=== PATIENT | female | born 1995 | race Caucasian/White ===

== ENCOUNTER 2019-06-24 00:04 | Inpatient (IN) | payer OTHER, MEDICAID ==
[~2019-06-24 00:04] MED LIST: Acetaminophen 325 MG Tab PO PRN; Carboprost Tromethamine 250 MCG/1 ML Amp IM PRN; Lactated Ringers 1,000 ML IV ONE; Lidocaine 1% 30 ML SDV INJECT PRN; Methylergonovine 0.2 MG/1 ML Amp IM PRN; Misoprostol 25 MCG (1/4 of 100 MCG) Tab VAG PRN; Misoprostol 400 MCG (4 X 100 MCG TAB) RECTAL PRN; Ondansetron 4 MG/2 ML SDV IVPUSH PRN; Oxytocin/Normal Saline 30 UNIT/500 ML BAG IV SCH; Sodium Chloride 0.9% 10 ML Syringe FLUSH PRN; Tranexamic Acid 1,000 MG in Sodium Chloride 0.9% 100 ML IV PRN
[2019-06-24] MEDS: Lactated Ringers 1,000 ML IV SCH ×4 (01:10→12:30)
[2019-06-24] MEDS ORDERED: ceFAZolin 2 GM in Premix Bag 1 BAG IV ONE (01:26)
[2019-06-24] MEDS ORDERED: Citric Acid/Sodium Citrate Solution 30 ML Cup PO ONE (01:26)
[2019-06-24] MEDS ORDERED: Ketorolac 30 MG/ML SDV IVPUSH SCH (01:30)
[2019-06-24] MEDS ORDERED: Acetaminophen/oxyCODONE 325-5 MG Tab PO PRN (01:30)
[2019-06-24] MEDS ORDERED: ePHEDrine 50 MG/ML SDV IVPUSH PRN (01:30)
[2019-06-24] MEDS ORDERED: Naloxone 2 MG/2 ML Syringe IVPUSH PRN (01:30)
[2019-06-24] MEDS ORDERED: diphenhydrAMINE 50 MG/ML SDV IVPUSH PRN (01:30)
--- NOTE | 2019-06-24 02:18 | OBOUT ---
DATE: 06/24/2019 TIME OF NST: 44 to 010. REASON FOR NST: 1. Intrauterine at 40 weeks by 7-3/7 weeks' ultrasound. 2. Gestational hypertension suspected. 3. Gestational thrombocytopenia, platelets of 130,000. 4. . NST INTERPRETATION: During this time period, heart tone baseline is approximately 120, at least two 15 x 15 beats per minute accelerations, making this strip reactive as well as also noted to be reassuring. Tocometer reveals potential 4 to 5 contractions which the patient did start feeling at the end of this NST. ASSESSMENT: 1. Nonstress test, reactive and reassuring. 2. Tocometer with contractions. PLAN: Shortly after this NST was performed at approximately 1:10 a.m., the patient's monitoring was being done and heart rate dropped down to less than 50 at its lowest, and this lasted for approximately 14 minutes before it came up to above 110 beats per minute. Noticed during this time period, the patient did describe some feeling more of her contractions and had a blood pressure that was elevated thereafter at 154/96 with a heart rate of 97. I was called in stat during this time period, and arrived, reviewed the strip quickly and discussed with the patient concerns with status and recommendation to proceed with primary low-transverse . Did discuss with her and her male partner risks, benefits, alternatives, and complications of including, but not limited to, infection; bleeding; damage to internal organs such as bowel, bladder, tubes, uterus, ovaries, sometimes fetus; rarely needing a blood transfusion or further surgery; and even rare maternal or . She understands, agrees, and wishes to proceed. Verbal and written consents were obtained and questions were answered. We will proceed to the OR as soon as crew is ready and available. At the current time of dictation, heart tones are in the 120s to 140s with some accelerations seen. Tocometer difficult to read because the patient is moving around, but possibility of contractions every 3 minutes at their closest. We will proceed as above. The patient understands and agrees with the above treatment plan. Type and screen will be made as well, and Ancef will be given. with the deceleration oxygen was given, ivf bolus given and positional changes were done. MOD /[id number] LEORA
--- NOTE | 2019-06-24 08:34 | OR ---
DATE: 06/24/2019 PREOPERATIVE DIAGNOSES: 1. Intrauterine at 40 weeks by 7-week ultrasound. 2. Nonreassuring status. 3. Gestational hypertension, labile and nearing severe quickly after admission. 4. Gestational thrombocytopenia, platelets of 130,000 with workup for HELLP and preeclampsia being done. 5. 1, para 0. POSTOPERATIVE DIAGNOSES: 1. Intrauterine at 40 weeks by 7-week ultrasound. 2. Tight nuchal cord x1. 3. Small old blood clot with placental membrane delivery, suspect early placental abruption. 4. Nonreassuring status. 5. Gestational hypertension, labile and nearing severe quickly after admission. 6. Gestational thrombocytopenia, platelets of 130,000 with workup for HELLP and preeclampsia being done. 7. 1, para 0. PROCEDURES PERFORMED: Nonstress test followed by primary low transverse section with 2-layer uterine closure. [employer] LO[employer]: Katarina Guthrie MD. ANESTHESIA: Spinal. EBL: 600 mL. IV FLUIDS: Lactated Ringer's, 500 mL. Pitocin 300 mL. URINE OUTPUT: 700 mL and clear yellow. START TIME: 2:16. UTERINE INCISION: 2:18. DELIVERY: 2:19. STOP: 2:39. FINDINGS: Female scores 8 and 9, tight nuchal cord x1, and small old blood clot noted with placental membrane delivery, suspect abruption. DESCRIPTION OF PROCEDURE: After proper consent was obtained, the patient was brought to the operating room with continuous monitoring during that time. When she presented to the OR, she had heart tones in the 140s with acceleration in the 170s and prior to delivery was between 120s and 130s. She had a Pardo placed prior to coming to the OR. Spinal anesthetic was administered, and the patient was placed in supine position with left lateral tilt. The abdomen was prepped and draped in the normal sterile fashion using Betadine to proceed quicker. A skin incision was then made on the lower abdomen in a transverse Pfannenstiel- type fashion, was carried down the fascia and scored in the midline. Subcutaneous tissue was raked laterally with Ahn retractor, and fascial incision was extended in a transverse fashion using curved Gonzales's. Pranay clamps x2 used to grasp the superior aspect of fashion and the rectus muscles dissected from the fascia using sharp and blunt technique. In a similar fashion, Pranay clamps x2 used to grasp the inferior portion of the incision, and the rectus and pyramidalis muscles were dissected off the fascia using sharp and blunt technique. Rectus muscles were in the midline with blunt technique. Abdominal cavity was entered with blunt technique and incision was extended superiorly and inferiorly with blunt technique. Frandy O large retractor was then introduced and used. Vesicouterine peritoneum was identified and incised in transverse fashion with Metzenbaum scissors. Bladder flap was made digitally. A curvilinear incision was made along the lower uterine segment at 0218 hours. Uterus was entered sharply. Clear fluid returned. Uterine incision was then extended in transverse fashion using blunt technique. vertex was then delivered through the abdomen with a tight nuchal cord x1, reduced bluntly with delivery. Rest of the infant was then delivered without difficulty. Mouth and nares were suctioned. Cord was doubly clamped and cut, and was brought over to the team. Then, approximately 10 mL cord blood was obtained for labs. Placenta then delivered with gentle cord traction and fundal massage, and there was noted with placental membranes some old blood clot, suspected early abruption. Uterine cavity was then cleared of all blood clots and debris with lap sponge. Loyola clamp was used to grasp the incision. This was closed in a running locked fashion and tied at the lateral margins with 1-0 Vicryl. A second imbricating layer was then applied with and tied at the lateral margins with 1-0 Vicryl. Left lateral portion of the incision revealed mild bleeding. Figure-of- eight stitch was applied. Hemostasis was reassured. First inspection of the uterine incision revealed hemostasis. Frandy O retractor was removed and paracolic gutters were then cleared of all blood clots and debris. Anterior cul-de-sac was irrigated copiously and all blood clots and debris were removed. Second and final inspection of the uterine incision and anterior cul-de-sac revealed hemostasis. Rectus muscles were then reapproximated in the midline with qpbinn-ry-omold stitch using 1-0 Vicryl. Subfascial tissue was found to be hemostatic. Fascia was closed in a running fashion and tied at the lateral margin with 0 looped PDS. Subcutaneous tissue was irrigated copiously. Hemostasis was reassured. Skin was reapproximated with david. Sterile Aquacel dressing was applied. The uterine fundus was firm and massaged at the conclusion of this case -2 below umbilicus. No immediate complications noted. Sponge, lap, and needle counts were correct. The patient received 2 g of Ancef preoperatively, Pitocin per protocol, and will receive Toradol at the conclusion of the case for pain control. Mother and are currently stable at the time of dictation. MODL /[id number] LEORA
[2019-06-24] MEDS: Docusate Sodium 100 MG Cap PO PRN ×2 (08:35→21:00)
[2019-06-24] MEDS: Prenatal Multivitamin with Calcium/Folic Acid/Iron Tab PO SCH (08:35)
[2019-06-24] MEDS: Simethicone 80 MG Tab.Chew PO SCH ×4 (08:36→21:00)
[2019-06-24] MEDS: Ketorolac 30 MG/ML SDV IVPUSH SCH ×3 (08:37→21:00)
[2019-06-24] MEDS ORDERED: Oxytocin/Normal Saline 30 UNIT/500 ML BAG IV ONE (10:10)
[2019-06-24 10:42] LABS: ANION GAP 17.2 mEq/L (7-13)
[2019-06-24] MEDS ORDERED: Ibuprofen 800 MG Tab PO PRN (21:30)
[2019-06-24] MEDS: Methylergonovine 0.2 MG Tab PO SCH (21:43)
[2019-06-25] MEDS: Acetaminophen/oxyCODONE 325-5 MG Tab PO PRN ×4 (03:38→21:37)
[2019-06-25] MEDS: Methylergonovine 0.2 MG Tab PO SCH ×3 (05:29→21:37)
[2019-06-25] MEDS: Ibuprofen 800 MG Tab PO PRN ×2 (05:30→15:50)
[2019-06-25 06:49] LABS: ANION GAP 14.7 mEq/L (7-13); CHLORIDE,CL 105 mmol/L (98-107); SODIUM,NA 140 mmol/L (136-145)
[2019-06-25] MEDS: Prenatal Multivitamin with Calcium/Folic Acid/Iron Tab PO SCH (08:19)
[2019-06-25] MEDS: Simethicone 80 MG Tab.Chew PO SCH ×4 (08:19→21:36)
[2019-06-25] MEDS: Docusate Sodium 100 MG Cap PO PRN ×2 (08:20→21:36)
--- NOTE | 2019-06-25 08:32 | PN ---
DATE: 06/25/2019 SUBJECTIVE: The patient is tolerating p.o., ambulating minimally. Pardo is still in place. Had an episode of increased bleeding after approximately 6 to 12 hours of no vaginal bleeding. I was called in regard to this. CBC was drawn as well as Methergine started 0.2 mg p.o. q.8 hours. The patient denies any chest pain, shortness of breath, lightheadedness. She denies any headaches, visual changes, or upper abdominal pain. OBJECTIVE: Vital Signs: Temperature 97.8, heart rate 76, blood pressure 117/67, respiratory rate 16. Lungs: Clear to auscultation bilaterally. Heart: S1 and S2. Regular rate and rhythm. Abdomen: Firm uterus. -1 below umbilicus. Aquacel dressing appears dry and intact. Minimal shadowing lateral border, appears to be stable. Extremities: PRINCESS hose are on. No calf pain. LABORATORY DATA: Yesterday, white cell count was 17.8, hemoglobin 8.6, platelets 121. On recheck this morning, 14.6 for a white cell count, hemoglobin stable at 8.5, and platelets at 116,000. BMP remarkable for her creatinine improving from 1.25 predelivery to 0.92 currently. ASSESSMENT AND PLAN: 1. Postop day #1, status post primary low transverse , two-layer uterine closure with suspected abruption and nonreassuring status. 2. Gestational hypertension - resolved. 3. Gestational thrombocytopenia, appears to be ongoing. She is stable otherwise. We will continue to follow closely in regard to this. 4. Anemia of acute blood loss with hemoglobin dropping from 11.5 down to 8.5. The patient is currently asymptomatic. We will follow closely. Start iron today. Recheck CBC tomorrow. 5. Increased creatinine. This has resolved. Suspect possibly related to hydration status versus possible early preeclampsia. We will continue to follow clinically and closely at this point in time. [facility] /[id number]
[2019-06-25] MEDS ORDERED: Sodium Bicarbonate 4.2% 2.5 MEQ/5 ML SDV IV ONE (09:12)
[2019-06-25] MEDS ORDERED: ePHEDrine 50 MG/ML SDV IV ONE (09:12)
[2019-06-25] MEDS ORDERED: Ketorolac 30 MG/ML SDV IVPUSH ONE (09:12)
[2019-06-25] MEDS ORDERED: Dexamethasone 4 MG/ML SDV IV ONE (09:12)
[2019-06-25] MEDS ORDERED: Morphine PF 1 MG/ML Amp ITHECAL ONE (09:12)
[2019-06-25] MEDS ORDERED: Ondansetron 4 MG/2 ML SDV IV ONE (09:12)
[2019-06-25] MEDS: Ferrous Sulfate 325 MG Tab PO SCH (21:36)
[2019-06-26] MEDS: Ibuprofen 800 MG Tab PO PRN ×3 (00:55→18:04)
[2019-06-26] MEDS: Acetaminophen/oxyCODONE 325-5 MG Tab PO PRN ×4 (02:57→22:32)
[2019-06-26] MEDS: Methylergonovine 0.2 MG Tab PO SCH (06:24)
--- NOTE | 2019-06-26 08:23 | PN ---
DATE: 06/26/2019 Postop day #2. SUBJECTIVE: The patient is tolerating p.o., is ambulating, urinating, passing flatus. Yesterday, she had 1 episode of lightheadedness. CBC was done and did reveal a hemoglobin that was stable at 9.1 with platelet count up to 131,000. Thereafter, the patient denies any other concerns. She denies any chest pain, shortness of breath, or lightheadedness this morning. OBJECTIVE: General: I's and O's have been followed and are adequate. Vital Signs: Temperature 98.8, heart rate 89, blood pressure 122/77, respiratory rate 18. Lungs: Clear to auscultation. Heart: S1, S2. Regular rate and rhythm. Firm uterus -1 below umbilicus. Aquacel dressing appears dry, intact. Minimal tracing in lateral edges. Not increasing in size. Extremities: Trace pedal edema. No calf pain. LABORATORY DATA: This morning, white cell count 10, hemoglobin 8.7, platelets 143,000. ASSESSMENT: 1. Postop day #2 status post primary low transverse section with 2- layer uterine closure. 2. Gestational hypertension, resolved. 3. Gestational thrombocytopenia, resolving. 4. Anemia, acute blood loss. Hemoglobin dropped from 11.5 to the lowest at 8.5. Hemoglobin stable. The patient is currently asymptomatic. We will follow closely. 5. Increased creatinine upon admission. At this point in time, yesterday's labs were reassuring with creatinine back in the normal range of 0.92. Urine output has been adequate. PLAN: Possible discharge tomorrow. Continue to follow clinically and closely. [facility] /[id number]
[2019-06-26] MEDS: Docusate Sodium 100 MG Cap PO PRN ×2 (08:51→21:16)
[2019-06-26] MEDS: Ferrous Sulfate 325 MG Tab PO SCH (08:51)
[2019-06-26] MEDS: Prenatal Multivitamin with Calcium/Folic Acid/Iron Tab PO SCH (08:54)
[2019-06-26] MEDS: Simethicone 80 MG Tab.Chew PO SCH ×4 (08:54→21:16)
[2019-06-27] MEDS: Acetaminophen/oxyCODONE 325-5 MG Tab PO PRN ×3 (03:50→14:14)
[2019-06-27] MEDS: Ibuprofen 800 MG Tab PO PRN (03:51)
--- NOTE | 2019-06-27 06:02 | DISCH ---
ADMIT DIAGNOSES: 1. Intrauterine at 40 weeks by 7-3/7 week ultrasound. 2. Nonreassuring status. 3. Gestational hypertension. 4. Gestational thrombocytopenia. 5. G1, P0. DISCHARGE DIAGNOSES: 1. Intrauterine at 40 weeks by 7-3/7 week ultrasound. 2. Tight nuchal cord x1. 3. Small old blood clot with delivery of placental membranes - abruption suspected. 4. Anemia of acute blood loss. Hemoglobin dropping down to 8.5 on postop day #1. 5. Increased creatinine - resolving. 6. Nonreassuring status. 7. Gestational hypertension - resolving. 8. Gestational thrombocytopenia - resolving. 9. G1, P0. PROCEDURES PERFORMED: NST followed by primary low transverse with 2- layer uterine closure. HISTORY OF PRESENT ILLNESS: Please see H and P. SUMMARY OF HOSPITAL COURSE: The patient was admitted on the above date with above diagnoses, was going to undergo induction of labor, but with monitoring prior to using any medications, nonreassuring status was noted with approximately a 14-minute deceleration. She was subsequently taken to the OR, shortly thereafter had a primary low transverse with 2 layer uterine closure under spinal anesthesia, yielding a female with scores 8 and 9 with a weight of 8 pounds 10 ounces, 3900 g. With this delivery, small blood clot was noted with placental membrane delivery, suspect abruption. Postop day #1, hemoglobin dropped down to 8.5. She was followed for symptoms and had serial labs. Did not require a blood transfusion and hemoglobin was stable at 9.1 on 06/24 and 8.7 on /. Her platelets started at 121 upon admission, dropped down to 116 on postop day #1. On postop day #2, they were up to 143,000. Postop day 1 and 2, please see progress notes for further details. Postoperative day #3, date of discharge, the patient was tolerating p.o., was ambulating, urinating, passing flatus, requesting discharge. SUBJECTIVE: Vital Signs: Last set of vitals; temperature 98.7, heart rate 93, blood pressure 129/80, respiratory rate 16. Lungs: Clear to auscultation bilaterally. Heart: S1, S2. Regular rate and rhythm. Abdomen: Firm. Uterus -1 to -2 below umbilicus. Aquacel dressing. Did have some shadowing that was increasing over the last 12 to 24 hours. Aquacel dressing was removed. No evidence of active bleeding or drainage was noted and re-application of a new Aquacel will be done prior to discharge. Extremities: Trace pedal edema. No calf pain. LABORATORY DATA: The patient's creatinine was also noted to be elevated at 1.25 on date of admission, dropped down to 1.19 after delivery, and on postop day #1 it was down to 0.92. Urine output was followed and adequate during this time period. CONDITION ON DISCHARGE COMPARED TO CONDITION ON ADMISSION: Improved. DISCHARGE INSTRUCTIONS: 1. Diet: As tolerated. 2. Activity: No lifting more than 20 pounds. No sit-ups or straining. Pelvic rest for the next 6 weeks with immediate return to fertility discussed with the patient. 3. Reason to return or go to the emergency room were discussed with the patient in detail including, but not limited to, temperature greater than 100.4, foul-smelling discharge, red or tender breasts, or increased vaginal bleeding or increasing pain, drainage, or redness around the incision. DISCHARGE MEDS: 1. [id number] Tylenol or ibuprofen for pain. 2. Percocet 5/325 one to two q.6 hours p.r.n., #30, no refills. Discussed these medication, adverse and unwanted effects, as well as precautions with driving. 3. Colace 100 mg b.i.d. p.r.n., #60, no refills. 4. Iron sulfate 325 mg b.i.d. x6 weeks, dispensed q.s., no refills. Followup on 07/01/2019 for removal of david with her baby. I did discuss with the patient interim reasons to go to the emergency room in regard to her baby as well as importance of followup and ramifications of not doing so. She understands and agrees with the above treatment plan. [facility] /[id number]
[2019-06-27] MEDS: Ferrous Sulfate 325 MG Tab PO SCH (09:17)
[2019-06-27] MEDS: Prenatal Multivitamin with Calcium/Folic Acid/Iron Tab PO SCH (09:17)
[2019-06-27] MEDS: Docusate Sodium 100 MG Cap PO PRN (09:17)
[2019-06-27] MEDS: Simethicone 80 MG Tab.Chew PO SCH ×2 (09:18→14:14)
== END 2019-06-27 15:02 | disposition home or self-care (01) | DRG 787 ==
LOC: DL.OBCHECK 00:04 → DL.OB 00:05 → OBSVTOIN 02:19 → DL.OB 02:19
PROVIDERS: ADMIT Family Medicine; ATTEND Family Medicine
PROC: 10D00Z1 Extraction of Products of Conception, Low, Open Approach (ICD-10-PCS; principal; 2019-06-24)
PROC: 4A0HXFZ Measurement of Products of Conception, Cardiac Rhythm, External Approach (ICD-10-PCS; 2019-06-24)
DX: O48.0 Post-term pregnancy (principal); D62 Acute posthemorrhagic anemia; O99.12 Other diseases of the blood and blood-forming organs and certain disorders involving the immune mechanism complicating childbirth; Z37.0 Single live birth; O13.4 Gestational [pregnancy-induced] hypertension without significant proteinuria, complicating childbirth; Z3A.40 40 weeks gestation of pregnancy; O69.81X0 Labor and delivery complicated by cord around neck, without compression, not applicable or unspecified; D69.6 Thrombocytopenia, unspecified; O90.81 Anemia of the puerperium
CPT/HCPCS: 36415; 51702; 80048; 81003; 82565; 82570; 83615; 84156; 84450; 84460; 84520; 84550; 85027; 86850; 86900; 86901; A9270-GY; J0690; J1100; J1200; J1885; J2274; J2405; J2590; J7120

== ENCOUNTER 2021-12-09 08:00 | Emergency (ER) | payer MEDICAID, OTHER | END 2021-12-09 08:20 | disposition home or self-care (01) | LOC: DL.ED 08:00 | DX: K04.7 Periapical abscess without sinus (principal) | CPT/HCPCS: 99282 ==

== ENCOUNTER 2021-12-10 08:00 | Emergency (ER) | payer MEDICAID, OTHER | END 2021-12-10 15:53 | disposition home or self-care (01) | LOC: DL.ED 08:00 | DX: K08.89 Other specified disorders of teeth and supporting structures (principal) | CPT/HCPCS: 99282 ==

== ENCOUNTER 2021-12-14 01:45 | Emergency (ER) | payer BC, MEDICAID, OTHER ==
[2021-12-14] MEDS ORDERED: traMADol 50 MG Tab PO ONE (02:55)
[2021-12-14] MEDS ORDERED: Amoxicillin/Clavulanate K 875-125 MG Tab PO ONE (02:55)
== END 2021-12-14 03:00 | disposition home or self-care (01) ==
LOC: DL.ED 01:45
DX: K02.9 Dental caries, unspecified (principal); L08.9 Local infection of the skin and subcutaneous tissue, unspecified
CPT/HCPCS: 99282; A9270-GY

== ENCOUNTER 2022-07-22 18:26 | Emergency (ER) | payer MEDICAID ==
[2022-07-22] MEDS ORDERED: Ketorolac 30 MG/ML SDV IM ONE (19:48)
== END 2022-07-22 20:45 | disposition home or self-care (01) ==
LOC: DL.ED 18:26
DX: M67.432 Ganglion, left wrist (principal); Z86.16 Personal history of COVID-19
CPT/HCPCS: 96372; 99283; J1885

== ENCOUNTER 2023-07-13 09:55 | Inpatient (IN) | payer MEDICAID ==
[2023-07-13] MEDS ORDERED: Carboprost Tromethamine 250 MCG/1 ML Amp IM PRN ×2 (10:00→15:08)
[2023-07-13] MEDS ORDERED: Ibuprofen 800 MG Tab PO PRN (10:00)
[2023-07-13] MEDS ORDERED: Tranexamic Acid 1,000 MG in Sodium Chloride 0.9% 100 ML IV PRN ×2 (10:00→15:09)
[2023-07-13] MEDS ORDERED: Methylergonovine 0.2 MG/1 ML Amp IM PRN ×2 (10:00→15:08)
[2023-07-13] MEDS ORDERED: Naloxone 2 MG/2 ML Syringe IVPUSH PRN ×2 (10:00→15:09)
[2023-07-13] MEDS ORDERED: Misoprostol 400 MCG (4 X 100 MCG TAB) RECTAL PRN ×2 (10:00→15:08)
[2023-07-13] MEDS ORDERED: Acetaminophen/oxyCODONE 325-5 MG Tab PO PRN ×3 (10:00→15:07)
[2023-07-13] MEDS ORDERED: Ondansetron 4 MG/2 ML SDV IVPUSH PRN ×2 (10:00→15:07)
[2023-07-13] MEDS ORDERED: Docusate Sodium 100 MG Cap PO PRN (10:00)
[2023-07-13] MEDS ORDERED: ePHEDrine 50 MG/ML SDV IVPUSH PRN ×2 (10:00→15:09)
[2023-07-13] MEDS ORDERED: Acetaminophen 325 MG Tab PO PRN (10:00)
[2023-07-13] MEDS: Lactated Ringers 1,000 ML IV SCH ×2 (10:20→18:34)
[2023-07-13 10:29] LABS: HEMATOCRIT 36.2 % (37.0-47.0); MEAN CORPUSCULAR HEMOGLOBIN 29.6 pg (27.0-34.0); MEAN CORPUSCULAR HGB CONC 33.1 g/dL (33.0-35.0); MEAN CORPUSCULAR VOLUME 89.4 fL (80-100); RED BLOOD CELL COUNT 4.05 10^6/uL (4.2-5.4)
[2023-07-13] MEDS ORDERED: ceFAZolin 2 GM Vial ONE (11:09)
[2023-07-13] MEDS ORDERED: Oxytocin/Normal Saline 30 UNIT/500 ML BAG ONE ×2 (11:09→11:18)
[2023-07-13] MEDS ORDERED: Methylergonovine 0.2 MG/1 ML Amp ONE (11:10)
[2023-07-13] MEDS: Oxytocin/Normal Saline 30 UNIT/500 ML BAG IV SCH (12:26)
[2023-07-13] MEDS: ceFAZolin 2 GM Vial IVPUSH ONE (13:13)
[2023-07-13] MEDS: Prenatal Multivitamin with Calcium/Folic Acid/Iron Tab PO SCH (13:14)
[2023-07-13] MEDS: Simethicone 80 MG Tab.Chew PO SCH ×2 (13:14→16:02)
[2023-07-13] MEDS: diphenhydrAMINE 50 MG/ML SDV IVPUSH PRN (14:12)
[2023-07-13] MEDS: Ketorolac 30 MG/ML SDV IVPUSH SCH ×2 (14:37→18:20)
[2023-07-13] MEDS ORDERED: diphenhydrAMINE 50 MG/ML SDV IVPUSH PRN (15:09)
[2023-07-13] MEDS ORDERED: Oxytocin/Normal Saline 30 UNIT/500 ML BAG IV SCH (15:15)
[2023-07-13] MEDS: Acetaminophen 325 MG Tab PO PRN (16:02)
[2023-07-13] MEDS: Docusate Sodium 100 MG Cap PO PRN (22:27)
[2023-07-14] MEDS: Acetaminophen/oxyCODONE 325-5 MG Tab PO PRN (04:29)
[2023-07-14 08:12] LABS: HEMATOCRIT 29.8 % (37.0-47.0); HEMOGLOBIN 9.5 g/dL (12.0-16.0); MEAN CORPUSCULAR HEMOGLOBIN 29.5 pg (27.0-34.0); MEAN CORPUSCULAR HGB CONC 31.9 g/dL (33.0-35.0); MEAN CORPUSCULAR VOLUME 92.5 fL (80-100); RED BLOOD CELL COUNT 3.22 10^6/uL (4.2-5.4); WHITE BLOOD CELL COUNT,WBC 9.7 10^3/uL (5.0-10.0)
[2023-07-14] MEDS: Prenatal Multivitamin with Calcium/Folic Acid/Iron Tab PO SCH (09:30)
[2023-07-14] MEDS: Ibuprofen 800 MG Tab PO PRN (15:02)
[2023-07-14] MEDS: Ferrous Sulfate 325 MG Tab PO SCH (18:16)
== END 2023-07-15 14:00 | disposition home or self-care (01) | DRG 787 ==
LOC: DL.OB 09:55 → OBSVTOIN 11:53 → DL.OB 11:53
PROVIDERS: ADMIT Family Medicine; ATTEND Family Medicine
PROC: 10D00Z1 Extraction of Products of Conception, Low, Open Approach (ICD-10-PCS; principal; 2023-07-13 12:00)
DX: O34.211 Maternal care for low transverse scar from previous cesarean delivery (principal); D62 Acute posthemorrhagic anemia; O99.02 Anemia complicating childbirth; Z3A.40 40 weeks gestation of pregnancy; Z37.0 Single live birth
CPT/HCPCS: 36415; 59025; 85027; 86850; 86900; 86901; A9270-GY; J1200; J1885; J2590; J7120

== ENCOUNTER 2023-10-12 21:59 | Emergency (ER) | payer MEDICAID ==
[2023-10-12 23:08] LABS: BASOPHILS PERCENT AUTO 0.2 % (0.0-1.0); EOSINOPHILS PERCENT AUTO 2.3 % (1.0-3.0); HEMOGLOBIN 12.1 g/dL (12.0-16.0); LYMPHOCYTES PERCENT AUTO 44.1 % (20.5-50.1); MEAN CORPUSCULAR HEMOGLOBIN 29.4 pg (27.0-34.0); MEAN CORPUSCULAR HGB CONC 32.7 g/dL (33.0-35.0); MONOCYTES PERCENT AUTO 6.6 % (2-8); NEUTROPHILS PERCENT AUTO 46.8 % (42.2-75.2); PLATELET COUNT,PLT 187 10^3/uL (150-450); RED BLOOD CELL COUNT 4.11 10^6/uL (4.2-5.4); WHITE BLOOD CELL COUNT,WBC 8.6 10^3/uL (5.0-10.0)
[2023-10-12 23:29] LABS: ANION GAP 10.9 mEq/L (7-13); BLOOD UREA NITROGEN,BUN 24 mg/dL (7-18); CALCIUM 9.6 mg/dL (8.5-10.1); CARBON DIOXIDE,CO2 30 mmol/L (21-32); CHLORIDE,CL 104 mmol/L (98-107); CREATININE 0.83 mg/dL (0.55-1.02); ESTIMATED GFR 99 mL/min (>=60); GLUCOSE RANDOM 89 mg/dL (70-99); POTASSIUM,K 3.9 mmol/L (3.5-5.1); SODIUM,NA 141 mmol/L (136-145)
[2023-10-12] MEDS: Sodium Chloride 0.9% 1,000 ML IV ONE (23:45)
[2023-10-12] MEDS: GI Cocktail Oral Solution 30 ML PO ONE (23:47)
== END 2023-10-13 00:41 | disposition swing bed (61) ==
LOC: DL.ED 21:59
DX: K21.9 Gastro-esophageal reflux disease without esophagitis (principal); F41.9 Anxiety disorder, unspecified; R51.9 Headache, unspecified; Z79.899 Other long term (current) drug therapy
CPT/HCPCS: 36415; 80048; 84484; 85025; 96360; 99284-25; A9270-GY; J7030